=== PATIENT | female | born 1985 | race Caucasian/White ===

== ENCOUNTER 2017-04-01 20:30 | Emergency (ER) | payer OTHER ==
[~2017-04-01] VITALS: Ht 154.9 cm; Wt 72.7 kg
[2017-04-01 21:12] VITALS: BP 125/83; PULSE 95; RESP 18; O2SAT 99
--- NOTE | 2017-04-01 21:58 | ED.REPORT ---
HPI-Extremity Problem Lower Date of Service Apr 01, 2017 ED Provider: Dr. Hector Jiang The patient is a 31 year old female who presents to the ED complaining of right ankle pain after rolling her ankle [employer]. Pt reports that she took a step of her porch and heard a slight "pop." She is breast feeding and wants to know what she can take for pain. She denies LOC, head injury, syncope, dizziness, or any other symptoms. Nursing Notes Stated Complaint: ANKLE PAIN Chief Complaint: Extremity Trauma Nursing Notes Reviewed: Yes Allergies: Coded Allergies: No Known Allergies (Unverified , 04/01/17) Scheduled PRN Ibuprofen (Ibuprofen) 600 Mg Tablet 600 MG PO QID PRN PRN For Pain General Time Seen by MD: 21:58 Chief Complaint Ankle injury right Hx Obtained From: Patient Arrived By: Walk-in Onset Occurred: Just prior to arrival Symptom Duration: Since onset Caused by: Accidental Location: : Ankle right Quality: Painful Severity: Current: Mild Pertinent Negative: Pt denies other symptoms Exacerbated by: Movement Recent Healthcare: No recent doctor visit, No recent hospitalization Similar Sx Previous: No Past Medical History Past Medical History unknown Past Surgical History denies Social History Other Social History: Local resident Ambulatory Status Independent Review of Systems Musculoskeletal: Reports: Joint pain, Joint swelling, Denies: Back pain, Neck pain Neurologic: Denies: Change LOC, Dizziness, Headache, Lightheaded, Numbness, Syncope Complete sys rev & neg: except as marked. Physical Exam Initial Vital Signs Vital Signs (First) Date Time Temp Pulse Resp B/P Pulse Ox O2 Delivery O2 Flow Rate FiO2 04/01/17 21:12 37.0 95 18 125/83 99 Room Air Initial VS: Reviewed Lower Extremity / Pelvis / MS: No deformity, Neurologic intact Right Ankle: Positive: Swelling present..., Tenderness present... General/Constitutional: Awake, Alert, Cooperative Skin: Atraumatic, Color NL, No rash Neurologic: Oriented X3, Speech NL Head / Eyes: Atraumatic, Normocephalic ENT: Atraumatic, Mucous membranes moist Upper Extremity / MS: Atraumatic, Full range of motion, No deformity Wrist / Hand: Atraumatic, Full range of motion, No deformity Interpretation & Diagnostics Interpretation & Diagnostics: RIGHT ANKLE X-RAY IMPRESSION: no fracture identified Re-Eval/Medical Decision Med Decision/Clinical Course Ankle sprain and otherwise healthy 31-year-old. Home with Airc[employer] ankle splint over eighty-[age] and with crutches. Ibuprofen as needed. Follow-up with PCP. Counseled Regarding: Diagnosis, Lab results, Need for follow-up, When/why to return to ED Discharge & Departure Impression: Primary Impression: Right ankle sprain Encounter type: initial encounter Involved ligament of ankle: unspecified ligament Qualified Code: S93.401A - Sprain of unspecified ligament of right ankle, initial encounter Disposition: Home Discharge Condition All VS Reviewed: Yes Condition: Stable Patient Instructions: Ankle Sprain (GEN), Crutch Instructions (ED) Additional Instructions: Thank you for entrusting us with your care today. The x-ray does not show any fracture. Take the sprint off to sleep. Elevate and ice the ankle as needed. Take Ibuprofen for pain, this will not interfere with breast feeding. Follow up with your primary care physician for further evaluation. Return to the Emergency Department if you experience any new or worsening symptoms including increased swelling, pain, redness, and warmth. I hope you feel better soon! Referrals: [facility] (PCP) Scribe Attestation Portion of this note were transcribed by Beti Cota. I, Dr. Jiang, personally performed the history, physical exam, and medical decision-making: I reviewed and confirmed the accuracy for the information in the transcribed note. Signed by: rod Reveles, 04/01/17 [id number] Hector Jiang MD Apr 01, 2017 21:58 Beti Cota Apr 01, 2017 22:29
[2017-04-01] MEDS ORDERED: IBUP-1827 PO (22:34)
--- NOTE | 2017-04-01 22:51 | DRSVH ---
PROCEDURE: X-RAY RIGHT ANKLE, MINIMUM THREE VIEWS ([id number]) INDICATIONS: INJURY TECHNIQUE: 3 views of the ankle were acquired. COMPARISON: None. FINDINGS: Bones: No fractures or dislocations. Ankle mortise is normally aligned. No suspicious bony lesions . Soft tissues: There is soft tissue swelling over the lateral malleolus. There is a minimal tibiotal ar joint effusion. Achilles tendon appears normal. IMPRESSION: 1. No fracture or dislocation. If clinical concern persists, recommend a repeat study in 7-10 days or cross-sectional imaging. Dictated by: Guanakito Weller M.D. on 04/01/2017 at 22:48 Approved by: Guanakito Weller M.D. on 04/01/2017 at 22:49
[2017-04-01 23:47] VITALS: BP 122/78; PULSE 89; RESP 18; O2SAT 100
== END 2017-04-01 23:00 | disposition home or self-care (01) ==
LOC: SED 20:30
DX: S93.491A Sprain of other ligament of right ankle, initial encounter (principal); X50.1XXA Overexertion from prolonged static or awkward postures, initial encounter; Y93.89 Activity, other specified; Y92.019 Unspecified place in single-family (private) house as the place of occurrence of the external cause; Y99.8 Other external cause status